=== PATIENT | female | born 1965 | race Two or more races ===

== ENCOUNTER 2020-07-14 16:44 | Emergency (ER) | payer MEDICAID ==
[~2020-07-14] VITALS: Ht 167.6 cm; Wt 49.0 kg
--- NOTE | 2020-07-14 16:45 | NUR ---
PT FAMILY C/O L ARM NUMBNESS AND NECK PAIN FOR 8 DAYS. PT IS AAOX4 IRISH SPEAKING ONLY, HOOKED TO [employer]CHITECT[employer]RAFTING [employer]CTOR, KEPT RESTED AND COMFORTABLE. WILL CONTINUE TO MONITOR.
[2020-07-14 17:03] VITALS: BP 148/88
--- NOTE | 2020-07-14 17:19 | NUR ---
AT BEDSIDE FOR EVAL.
--- NOTE | 2020-07-14 17:40 | NUR ---
Patient discharged to home in stable condition. Written and verbal after care instructions given. Patient verbalizes understanding of instruction.
== END 2020-07-14 17:43 | disposition home or self-care (01) ==
LOC: ER 16:53
DX: F41.9 Anxiety disorder, unspecified (principal); M54.12 Radiculopathy, cervical region; F32.9 Major depressive disorder, single episode, unspecified

== ENCOUNTER 2020-09-11 14:58 | Emergency (ER) | payer MEDICAID ==
[~2020-09-11] VITALS: Ht 154.9 cm; Wt 49.0 kg
[2020-09-11] MEDS ORDERED: CARI350T PO (15:45)
[2020-09-11] MEDS ORDERED: HYDR-3972 PO (15:45)
[2020-09-11 16:04] VITALS: BP 120/78
--- NOTE | 2020-09-11 17:36 | NUR ---
Patient discharged to home in stable condition. Written and verbal after care instructions given. Patient verbalizes understanding of instruction.
== END 2020-09-11 16:00 | disposition home or self-care (01) ==
LOC: ER 15:02
DX: M54.12 Radiculopathy, cervical region (principal); F41.9 Anxiety disorder, unspecified; F32.9 Major depressive disorder, single episode, unspecified; Z79.899 Other long term (current) drug therapy

== ENCOUNTER 2020-09-15 14:54 | Emergency (ER) | payer MEDICAID ==
[~2020-09-15] VITALS: Ht 154.9 cm; Wt 49.0 kg
[~2020-09-15 14:54] MED LIST: CARI350T PO; HYDR-3972 PO
[2020-09-15 15:56] VITALS: BP 128/71
[2020-09-15] MEDS ORDERED: CYCL5TAB PO (17:30)
[2020-09-15] MEDS ORDERED: IBUP-1955 PO (17:30)
[2020-09-15] MEDS ORDERED: TRAM50TA2 PO ×2 (17:30→17:38)
--- NOTE | 2020-09-15 17:42 | NUR ---
Patient discharged to home in stable condition. Written and verbal after care instructions given. Patient verbalizes understanding of instruction.
== END 2020-09-15 17:44 | disposition home or self-care (01) ==
LOC: ER 14:55
DX: M54.12 Radiculopathy, cervical region (principal); Z76.0 Encounter for issue of repeat prescription; F41.9 Anxiety disorder, unspecified; F32.9 Major depressive disorder, single episode, unspecified; Z79.899 Other long term (current) drug therapy